=== PATIENT | male | born 1985 | race African-American/Black ===

== ENCOUNTER 2020-09-29 22:22 | Emergency (ER) | payer SELFPAY ==
[2020-09-29 22:27] VITALS: TEMP 97; BMI 24.3
[2020-09-30 01:27] LABS: BASO % 3.4 % (0-2.0); EOS % 1.8 % (0-4.5); HEMATOCRIT 44.9 % (35.4-49); HEMOGLOBIN 15.5 GM/dL (11.7-16.9); LYMPH % 40.1 % (8-40); MCH 27.7 pg (25.7-33.7); MCHC 34.4 g/dl (32.0-35.9); MEAN CELL VOLUME 80.4 fl (80-96); MEAN PLT VOLUME 10.2 fl (7.5-11.1); MONO % 5.8 % (3.8-10.2); NEUT % 48.9 % (42.8-82.8); PLATELET COUNT 127 10^3/uL (134-434); RBC 5.59 M/mm3 (4.00-5.60); RDW 13.3 % (11.9-15.9); WHITE BLOOD COUNT 4.6 K/mm3 (4.0-10.0)
[2020-09-30 01:50] LABS: CHLORIDE 98 mmol/L (98-107); SODIUM 133 mmol/L (136-145)
[2020-09-30 01:52] LABS: CALCIUM 9.5 mg/dL (8.5-10.1)
[2020-09-30 01:53] LABS: ALBUMIN 4.3 g/dl (3.4-5.0); ANION GAP 8 MMOL/L (8-16); BLOOD UREA NITROGEN 11.8 mg/dL (7-18); CO2 28 mmol/L (21-32)
[2020-09-30 01:56] LABS: CREATININE 1.3 mg/dL (0.55-1.3); SGOT/AST 14 U/L (15-37); SGPT/ALT 34 U/L (13-61)
[2020-09-30 01:58] LABS: TOT PROT 8.2 g/dl (6.4-8.2)
[2020-09-30 01:59] LABS: ALK PHOS 99 U/L (45-117)
[2020-09-30 02:04] LABS: BILIRUBIN,TOTAL 1.2 mg/dL (0.2-1); GLUCOSE,RANDOM 469 mg/dL (74-106)
[2020-09-30] MEDS ORDERED: SODIUM CHLORIDE 0.9% 500 ML INFUS.BAG IV ONE (02:11)
[2020-09-30 02:59] VITALS: BP 130/84; PULSE 69
== END 2020-09-30 02:57 | disposition home or self-care (01) ==
LOC: JER 22:22
DX: R53.1 Weakness (principal)
CPT/HCPCS: 36415; 80053; 82962; 83036; 85025; 93005; 93010; 99284-25